=== PATIENT | female | born 1985 | race Caucasian/White ===

== ENCOUNTER 2019-01-29 11:09 | Day surgery (SDC) | payer MEDICAID ==
[2019-01-29] VITALS (15 sets, daily range): BP systolic 105–135; BP diastolic 61–69; PULSE 60–75; RESP 14–18; Ht 152.4 cm; Wt 68.7 kg
[~2019-01-29] VITALS: Ht 152.4 cm; Wt 68.7 kg
[~2019-01-29 11:09] MED LIST: CIPR500T4 PO; NAPR-985 PO
[2019-01-29] MEDS ORDERED: SOD CHLORIDE 0.9% 1,000 ML IV SCH (13:00)
[2019-01-29] MEDS ORDERED: CEFAZOLIN 1 GM/50 ML (PMX) 50 ML IVPB ONE (13:00)
[2019-01-29] MEDS ORDERED: LIDOCAINE 2% (SDV) 5 ML INJ ONE (14:36)
[2019-01-29] MEDS ORDERED: ONDANSETRON 4 MG INJ ONE (14:36)
[2019-01-29] MEDS ORDERED: METOCLOPRAMIDE 10 MG INJ ONE (14:36)
[2019-01-29] MEDS ORDERED: MEPERIDINE 100 MG INJ ONE (14:36)
[2019-01-29] MEDS ORDERED: CEFAZOLIN 1 GM INJ ONE (14:36)
[2019-01-29] MEDS ORDERED: PROPOFOL 20 ML ONE (14:36)
[2019-01-29] MEDS ORDERED: NALOXONE (0.4 MG/ML) INJ ONE (15:39)
[2019-01-29] MEDS ORDERED: HYDROmorphONE 1 MG/5 ML IV SYRINGE IV ONE (15:57)
[2019-01-29] MEDS ORDERED: DIPHENHYDRAMINE 50 MG INJ IV PRN (16:00)
[2019-01-29] MEDS ORDERED: EPHEDrine 25 MG/5 ML SYG IV PRN (16:00)
[2019-01-29] MEDS ORDERED: OXYCODONE/ACETAMINOPHEN (5/325) TAB PO PRN ×2 (16:00)
[2019-01-29] MEDS ORDERED: MIDAZOLAM 1 MG/ML 2 ML INJ IV PRN (16:00)
[2019-01-29] MEDS ORDERED: FENTAnyl 50 MCG/ML VIAL IV PRN ×3 (16:00)
[2019-01-29] MEDS ORDERED: ONDANSETRON 4 MG INJ IV PRN (16:00)
[2019-01-29] MEDS ORDERED: HYDROmorphONE 1 MG/5 ML IV SYRINGE IV PRN ×3 (16:00)
[2019-01-29] MEDS ORDERED: LABETALOL HCL 20MG INJ IV PRN (16:00)
[2019-01-29] MEDS ORDERED: MEPERIDINE 25 MG INJ IV PRN (16:00)
[2019-01-29] MEDS ORDERED: hydrALAzine 20 MG INJ IV PRN (16:00)
[2019-01-29] MEDS ORDERED: METOCLOPRAMIDE 10 MG INJ IV PRN (16:00)
== END 2019-01-29 17:13 | disposition home or self-care (01) ==
LOC: SDS 11:09
PROVIDERS: ATTEND Surgery Surgical Oncology
DX: D24.2 Benign neoplasm of left breast (principal)
CPT/HCPCS: 19120; 84703; 88307; J0690; J1170; J2175; J2310; J2405; J2765; Z7512; Z7610